=== PATIENT | male | born 1990 | race Caucasian/White ===

== ENCOUNTER 2017-03-11 13:04 | Emergency (ER) | payer BC, OTHER ==
[~2017-03-11] VITALS: Ht 182.9 cm; Wt 81.6 kg
--- NOTE | 2017-03-11 13:32 | ED Upper Extremity ---
General Chief Complaint: Laceration Stated Complaint: L HAND FINGER LAC Nursing Triage Note: ARRIVED VIA AMB. LACERATION TO LEFT INDEX FINGER. STATES HE CUT IT ON A BLADE ON A DROAN. Nursing Sepsis Screen: No Definite Risk Source: patient Exam Limitations: no limitations History of Present Illness Time seen by provider: 13:29 Initial Comments Patient stuck his left hand in the props of a drone today prior to arrival and has lacerations to the second digit flexor side and lateral side of his hand and fifth digit superficial. He states that he has sensation without numbness or tingling. Not sure the last time he had a tetanus shot. States he has an allergy to amoxicillin. No other injuries to his hand or elsewhere Allergies and Home Medications Allergies Coded Allergies: amoxicillin (Unverified Allergy, Mild, RASH, 06/06/07) Home Medications Hydrocodone/Acetaminophen 1 Each Tablet, 1 EACH PO Q4H PRN for PAIN, #10 Ref 0 Prescribed by: CAMILA HUERTA on 03/11/17 1431 Sulfamethoxazole/Trimethoprim 1 Each Tablet, 1 EACH PO BID for 7 Days, #14 Ref 0 Prescribed by: CAMILA HUERTA on 03/11/17 1431 Respiratory: No cough, No short of breath Gastrointestinal: No abdominal pain, No loss of appetite Skin: see HPI, No pruritus, No rash Psychiatric/Neurological: Denies Anxiety, Denies Depressed Past Agrgtcn-Oxausi-Bdvfjp Hx Patient Social History Alcohol Use: Occasionally Uses Recreational Drug Use: Yes Drug of Choice: POT Smoking Status: Never a Smoker 2nd Hand Smoke Exposure: No Recent Foreign Travel: No Contact w/Someone Who Travel: No Recent Infectious Disease Expo: No Recent Hopitalizations: No Immunizations Up To Date Tetanus Booster (TDap): Unknown Surgeries HX Surgeries: Yes Surgeries: Tonsillectomy Respiratory Hx Respiratory Disorders: No Cardiovascular Hx Cardiac Disorders: No Neurological Hx Neurological Disorders: No Reproductive System Hx Reproductive Disorders: No Genitourinary Hx Genitourinary Disorders: No Gastrointestinal Hx Gastrointestinal Disorders: No Musculoskeletal Hx Musculoskeletal Disorders: No Endocrine Hx Endocrine Disorders: No HEENT HX ENT Disorders: No Cancer Hx Cancer: No Psychosocial Hx Psychiatric Problems: No Physical Exam Vital Signs Vital Sign - Last 12Hours 03/11/17 13:21 Temp 98.0 Pulse 53 Resp 16 B/P (MAP) 122/60 Pulse Ox 97 O2 Delivery Room Air Capillary Refill : Less Than 3 Seconds General Appearance: WD/WN, no apparent distress Wrist: Yes normal inspection, Yes non-tender Hand: Left, bone tenderness, deformity, ecchymosis, infection, laceration, limited ROM, nail injury, soft tissue tenderness, stiffness, swelling Neurologic/Tendon: normal sensation, normal motor functions, normal tendon functions, responds to pain, no evidence tendon injury Neurologic/Psychiatric: no motor/sensory deficits, alert, oriented x 3 Laceration Repair : Wound Location: Other (left hand) Wound Length (cm): 4 Wound's Depth, Shape: linear, sub Q, tendon Wound Explored: no foreign body removed Irrigated w/ Saline (ccs): 20 Betadine Prep?: Yes Anesthesia: 1% Lidocaine Wound Debrided: minimal Suture: Ethlion (ethilon) Suture Size: 4-0 Number of Sutures: 10 Layer Closure?: 1 Sterile Dressing Applied?: Yes Progress After the risks were explained the patient accepted the procedure we cleaned the wound with Betadine and chlorhexidine and injected the lidocaine. The patient was then draped and under sterile fashion 4-0 Ethilon sutures 10 were placed in 2 lacerations one distally was 3 cm long lateral side of the second digit and the second laceration was 1 cm long just proximal on the lateral side of the second digit. (6 and 4 sutures respectively) patient tolerated this well. Progress/Results/Core Measures Results/Orders My Orders Orders - CAMILA HUERTA Lidocaine 1% Injection (Xylocaine 1% Inj (03/11/17 13:45) Tetanus/Diphtheria Inj (Adult) (Tenivac (03/11/17 14:45) Medications Given in ED Current Medications Medications Dose Ordered Sig/Lisa Route Start Time Stop Time Status Last Admin Dose Admin Lidocaine HCl 20 ml ONCE ONCE INJ 03/11/17 13:45 03/11/17 13:46 DC 03/11/17 13:38 20 ML Tetanus/ Diphtheria Toxoids 0.5 ml ONCE ONCE IM 03/11/17 14:45 03/11/17 14:45 DC 03/11/17 14:39 0.5 ML Vital Signs/I&O Vital Sign - Last 12Hours 03/11/17 03/11/17 13:21 14:40 Temp 98.0 Pulse 53 71 Resp 16 16 B/P (MAP) 122/60 Pulse Ox 97 98 O2 Delivery Room Air Blood Pressure Mean: 80 Progress Note : Progress Note Laceration repair and tetanus shot given. Patient tolerated well. Follow up with PCP in 5 days. Departure Impression Impression: Primary Impression: Laceration Disposition: 01 HOME, SELF-CARE Condition: Improved Departure-Patient Inst. Decision time for Depature: 14:29 Referrals: CAMILO TANG MD (PCP) Primary Care Physician Patient Instructions: Laceration Repair With Stitches (DC) Add. Discharge Instructions: He got a tetanus shot today. Keep the area clean with mild soap and water and apply a small amount of Vaseline to keep the skin at the site of the cut moist area a loose gauze dressing or Band-Aid would be okay. Do not of submerse and fluid until 48 hours. Follow-up with her primary care physician and have the stitches assessed and removed in about 5-7 days. If the wounds are getting bright red, swelling, painful apply ice, start the antibiotics and follow-up with your primary care physician or return to the ER which ever is appropriate. All discharge instructions reviewed with patient and/or family. Voiced understanding. Scripts Sulfamethoxazole/Trimethoprim (Bactrim Ds Tablet) 1 Each Tablet 1 EACH PO BID for 7 Days, #14 TAB 0 Refills Prov: CAMILA HUERTA 03/11/17 Hydrocodone/Acetaminophen (Hydrocodon -Acetaminophen 5-325) 1 Each Tablet 1 EACH PO Q4H Y for PAIN, #10 TAB 0 Refills Prov: CAMILA HUERTA 03/11/17 Copy Copies To 1: CAMILO TANG MD, TITUS J March 11, 2017 13:32
[2017-03-11] MEDS ORDERED: LIDOCAINE 1% INJ 20 ML (XYLOCAINE) VIAL INJ ONE (13:45)
[2017-03-11] MEDS ORDERED: HYDR-3812 PO (14:31)
[2017-03-11] MEDS ORDERED: SULF1TAB35 PO (14:31)
[2017-03-11 14:40] VITALS: BP 131/85
[2017-03-11] MEDS ORDERED: TETANUS & DIPHTHERIA TOX,ADULT 0.5 ML (TENIVAC) IM ONE (14:45)
== END 2017-03-11 14:40 | disposition home or self-care (01) ==
LOC: EDUNIT# 13:04 → ER 13:06
DX: S61.211A Laceration without foreign body of left index finger without damage to nail, initial encounter (principal); Z23 Encounter for immunization; W45.8XXA Other foreign body or object entering through skin, initial encounter; Y99.8 Other external cause status
CPT/HCPCS: 12041; 90471; 90714

== ENCOUNTER 2017-03-18 14:34 | Emergency (ER) | payer SELFPAY ==
[~2017-03-18 14:34] MED LIST: HYDR-3812 PO; SULF1TAB35 PO
== END 2017-03-18 14:50 | disposition home or self-care (01) ==
LOC: EDUNIT# 14:34 → ER 14:35
DX: S61.211D Laceration without foreign body of left index finger without damage to nail, subsequent encounter (principal)

== ENCOUNTER → 2019-02-24 | Outpatient (CLI) | payer OTHER ==
[~2019-02-24] MED LIST changes: +ACHD5005 PO; +GADOBUTROL 10 MMOL/10 ML (GADAVIST) VIAL IV ONE; -HYDR-3812 PO
--- NOTE | 2019-02-24 14:17 | Diagnostic Imaging Report ---
PROCEDURE: MR imaging of the brain with and without contrast. TECHNIQUE: Multiplanar, multisequence MR imaging of the brain was performed with and without contrast. INDICATION: Visual disturbances. Esotropia. Diplopia. COMPARISON: None. FINDINGS: No abnormal intracranial signal or enhancement. No restricted water diffusion or hemosiderin deposition. Normal morphology including the major midline structures, sella, posterior fossa and cerebellopontine angle. No hydrocephalus or extra-axial fluid collections. Normal intracranial flow voids. Dedicated sequences of the orbits are negative. Mild mucosal thickening in the left maxillary sinus. The mastoids are clear. Normal bone marrow signal. IMPRESSION: 1. Normal MRI of the brain without and with IV contrast. 2. Esotropia. Dedicated sequences of the orbits are otherwise negative. 3. Mild mucosal thickening in the left maxillary sinus. Dictated by: Dictated on workstation # [id number]
== END ==
LOC: RAD 12:24
PROVIDERS: ATTEND Ophthalmology
DX: J32.0 Chronic maxillary sinusitis (principal); H50.05 Alternating esotropia; H53.2 Diplopia
CPT/HCPCS: 70553

== ENCOUNTER 2021-03-23 00:30 | Emergency (ER) | payer OTHER ==
[~2021-03-23] VITALS: Ht 183 cm; Wt 83.9 kg
[~2021-03-23 00:30] MED LIST changes: -GADOBUTROL 10 MMOL/10 ML (GADAVIST) VIAL IV ONE
[2021-03-23 00:43] VITALS: BP 123/74
--- NOTE | 2021-03-23 01:04 | ED EENT ---
History of Present Illness General Chief Complaint: Oral/Throat Problems Stated Complaint: FEVER 100.2,SORE THROAT,RT EAR PAIN Nursing Triage Note: right ear/right sided throat pain x2 days. reports fever at home. Source: patient Exam Limitations: no limitations History of Present Illness Date Seen by Provider: March 23, 2021 Time Seen by Provider: 00:50 Initial Comments Patient is a 30-year-old male who presents to the emergency department today with a chief complaint of right-sided earache and sore throat. Patient states that he has felt dizzy and out of it today. He states his earache and sore throat started 2 days ago. He was seen at [facility] and diagnosed with a viral pharyngitis and was recommended to take apnf-htl-jndxhna cough and cold and congestion medications. Patient states that he has been taking generic NyQuil and DayQuil as well as Synex pain relief without much relief. Patient has not been taking any ingu-fqt-wrlmcgh ibuprofen or doing any warm salt water gargles. He denies any other complaints of cough, nausea, vomiting or diarrhea. No other constitutional symptoms reported All other review of systems reviewed and negative except as stated above. Timing/Duration: gradual Severity: moderate Location: ear (R), throat Prearrival Treatment: over the counter meds Associated Symptoms: malaise, sore throat Allergies and Home Medications Allergies Coded Allergies: amoxicillin (Unverified Allergy, Mild, RASH, 06/06/07) Patient Home Medication List Home Medication List Reviewed: Yes Review of Systems Review of Systems Constitutional: see HPI Eyes: No Symptoms Reported Ears: Pain (Right ear pain) Nose: no symptoms reported Throat: pain, painful swallowing Respiratory: no symptoms reported Cardiovascular: no symptoms reported Gastrointestinal: no symptoms reported Musculoskeletal: no symptoms reported Skin: no symptoms reported All Other Systems Reviewed Negative Unless Noted: Yes Past Dkwxszx-Inalcg-Zvbpex Hx Patient Social History Alcohol Use: Occasionally Uses Drug of Choice: cannibus Smoking Status: Never a Smoker 2nd Hand Smoke Exposure: No Recent Infectious Disease Expo: No Recent Hopitalizations: No Immunizations Up To Date Tetanus Booster (TDap): Unknown Seasonal Allergies Seasonal Allergies: Yes Past Medical History Surgeries: Yes Eye Surgery, Tonsillectomy Respiratory: No Cardiac: No Neurological: No Reproductive Disorders: No Genitourinary: No Gastrointestinal: No Musculoskeletal: No Endocrine: No HEENT: No Cancer: No Psychosocial: No Integumentary: No Blood Disorders: No Physical Exam Vital Signs Vital Signs - First Documented 03/23/21 00:43 Temp 36.9 Pulse 66 Resp 18 B/P (MAP) 123/74 (90) Pulse Ox 98 O2 Delivery Room Air Height, Weight, BMI Height: 6'" Weight: 180lbs. oz. 81.815181bn; 25.00 BMI Method:Stated General Appearance: WD/WN, no apparent distress Eyes: bilateral eye normal inspection, bilateral eye PERRL, bilateral eye EOMI Ears: bilateral ear auricle normal, bilateral ear canal normal, bilateral ear TM normal (Bilateral TMs are scarred and slightly retracted, no erythema distention or loss of normal landmarks) Nose: normal inspection Mouth/Throat: normal mouth inspection, other (Mild pharyngeal erythema, no unilateral swelling no exudate is noted) Neck: full range of motion, lymphadenopathy (R) Respiratory: no respiratory distress, no accessory muscle use Neurologic/Psychiatric: alert, normal mood/affect, oriented x 3 Skin: normal color, warm/dry Procedures/Interventions Suture Size: 4-0 Progress/Results/Core Measures Results/Orders Vital Signs/I&O 03/23/21 00:43 Temp 36.9 Pulse 66 Resp 18 B/P (MAP) 123/74 (90) Pulse Ox 98 O2 Delivery Room Air Blood Pressure Mean: 90 Departure Impression Primary Impression: Viral pharyngitis Disposition: 01 HOME, SELF-CARE Condition: Stable Departure-Patient Inst. Decision time for Depature: 01:03 Referrals: ANTWAN ROCKWELL MD (PCP/Family) Primary Care Physician Patient Instructions: Viral Pharyngitis Add. Discharge Instructions: Warm salt water gargles and rinses will help your throat discomfort. Mwnj-txt-ahaxcvq ibuprofen, 3 pills which is 600 mg every 6 hours with food will help with throat pain. Continue your iapm-cdk-eszxwse DayQuil/NyQuil medications as needed. Drink plenty of fluids to stay well-hydrated. Come back to the emergency department for reevaluation for any new, concerning or emergent complaints RHIANNON SEGURA MD March 23, 2021 01:04
[2021-03-23] MEDS ORDERED: IBUPROFEN 600 MG (MOTRIN) TAB PO ONE (01:15)
== END 2021-03-23 01:09 | disposition home or self-care (01) ==
LOC: EDUNIT# 00:30 → ER 00:36
DX: J02.8 Acute pharyngitis due to other specified organisms (principal); R59.0 Localized enlarged lymph nodes; Z90.89 Acquired absence of other organs
CPT/HCPCS: 99283